=== PATIENT | female | born 1970 | race African-American/Black ===

== ENCOUNTER 2023-06-26 19:20 | Emergency (ER) | payer OTHER ==
[2023-06-26 19:40] VITALS: BP 150/84; PULSE 79; RESP 18; BMI 44.6
[2023-06-26] MEDS ORDERED: CLINDAMYCIN HCL 300 MG CAPSULE PO ONE (19:50)
[2023-06-26] MEDS ORDERED: CLINDAMYCIN HCL 150 MG CAPSULE (FP) ONE (19:53)
== END 2023-06-26 20:10 | disposition home or self-care (01) ==
LOC: FER 19:20
DX: T81.31XA Disruption of external operation (surgical) wound, not elsewhere classified, initial encounter (principal); L03.113 Cellulitis of right upper limb; L03.114 Cellulitis of left upper limb
CPT/HCPCS: 99283-25

== ENCOUNTER 2023-07-01 20:37 | Emergency (ER) | payer OTHER ==
[2023-07-01 20:52] VITALS: BP 152/102; PULSE 87; RESP 16; TEMP 99.3; BMI 37.8
[2023-07-01] MEDS ORDERED: DALBAVANCIN HCL 1,500 MG in DEXTROSE 5%-WATER - 500 ML IVPB ONE (21:04)
[2023-07-01] MEDS ORDERED: DALBAVANCIN HCL 500 MG VIAL (RESTRICTED TO ID ONLY) IVPB ONE (21:43)
[2023-07-01 21:55] LABS: HEMATOCRIT 32.9 % (32.4-45.2); HEMOGLOBIN 10.4 G/dL (10.7-15.3); MCH 27.4 pg (25.7-33.7); MCHC 31.5 g/dl (32.0-36.0); MEAN PLT VOLUME 8.1 fl (7.5-11.1); PLATELET COUNT 286.3 10^3/uL (134-434); RBC 3.78 10^6/uL (3.60-5.2); RDW 20.3 % (11.6-15.6); WHITE BLOOD COUNT 7.4 10^3/uL (4.0-10.8)
[2023-07-01 22:11] LABS: ALBUMIN 3.7 g/dl (3.4-5.0); CALCIUM 9.2 mg/dl (8.5-10.1); CREATININE 1.1 mg/dl (0.6-1.3); POTASSIUM 4.5 mmol/L (3.5-5.1); SGOT/AST 20.9 U/L (15-37); SGPT/ALT 15.3 U/L (7-52); TOT PROT 6.8 g/dl (6.4-8.2)
[2023-07-01] MEDS ORDERED: ONDANSETRON 4 MG/2 ML VIAL IVPB ONE (22:48)
[2023-07-01] MEDS ORDERED: ONDANSETRON 4 MG/2 ML VIAL ONE (22:49)
[2023-07-02 00:05] LABS: BILIRUBIN,TOTAL 0.4 mg/dL (0.2-1)
== END 2023-07-01 23:29 | disposition home or self-care (01) ==
LOC: FER 20:37
PROC: 3E03329 Introduction of Other Anti-infective into Peripheral Vein, Percutaneous Approach (ICD-10-PCS; principal; 2023-07-01)
PROC: 3E033GC Introduction of Other Therapeutic Substance into Peripheral Vein, Percutaneous Approach (ICD-10-PCS; 2023-07-01)
DX: L03.113 Cellulitis of right upper limb (principal); L03.114 Cellulitis of left upper limb; M71.21 Synovial cyst of popliteal space [Baker], right knee
CPT/HCPCS: 36415; 80053; 85027; 93970-TC; 99284-25; J0875